=== PATIENT | female | born 1925 | race Caucasian/White ===

== ENCOUNTER 2016-06-22 15:41 | Inpatient (IN) | payer MEDICARE, BC ==
--- NOTE | ~2016-06-22 | HP ---
Unit #: [id number] #: [id number] Patient: LEILA CROWE [id number] [address] [place], [place] [address] [id number] MR#: [id number] NAME: LEILA CROWE ROOM: 18443 Age: 89 Sex: F Admission Date: 06/22/2016 : 1925 Attending Physician: Maria Luisa Duncan M.D. Primary Care Physician: Deepak Nuñez M.D. HISTORY AND PHYSICAL CHIEF COMPLAINT Anemia, weakness, nausea and vomiting, melena. HISTORY OF PRESENT ILLNESS This very pleasant 89-year-old female with small lymphocytic lymphoma, pancytopenia, valvular heart disease, is admitted for melena. The patient's last bowel movement was four days ago. She has been feeling weaker and nauseous. She was seen by Dr. Gilman today who gave her a liter of saline bolus, and recommended she come to the ER due to her worsening constipation and possible need for disimpaction. While in the ER, she received an enema and was noted to have black stools. Her blood pressure is 97/44 and she was bolused with another liter of saline. Her hematocrit is 22.2 down from 24 two days ago. She is also noted to be pancytopenic which is chronic. PAST MEDICAL HISTORY 1. 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 2. Mild aortic stenosis, severe mitral regurgitation, moderate pulmonary hypertension. History of chronic diastolic congestive heart failure with ejection fraction of 55%. 3. History of community-acquired pneumonia. 4. Hypothyroidism. 5. Hypertension. 6. Left neck surgery. 7. Cholecystectomy. 8. D and C. 9. Port placement. ALLERGIES No known drug allergies. HOME MEDICATIONS 1. Aspirin 81 mg daily. 2. Lasix 40 mg daily. 3. Metoprolol 12.5 mg b.i.d. 4. Synthroid 0.15 mg daily. 5. Imbruvica two tablets daily. SOCIAL HISTORY The patient lives alone. Stopped smoking 35 years ago. Does not drink alcohol. FAMILY HISTORY Unit #: [id number] #: [id number] Patient: LEILA CROWE CAD. REVIEW OF SYSTEMS Notable for weakness, nausea, vomiting, constipation, lymphoma, pancytopenia, valvular heart disease, congestive heart failure, hypothyroidism, hypertension, above-mentioned surgeries. All other systems were reviewed and are negative. PHYSICAL EXAMINATION VITAL SIGNS: Temperature 97.5, pulse 67, respirations 16, blood pressure 97/44 which has improved to 125/42, O2 saturation 97% on room air. GENERAL: Pleasant, 89-year-old pale female currently in no acute distress. HEENT: Eyes PERRLA. Extraocular muscles are intact. Pharynx benign. NECK: Supple without adenopathy or thyromegaly. CHEST: Clear. There is a port in the right upper chest. HEART: Normal S1, S2 with a 3/6 systolic murmur heard throughout the precordium. ABDOMEN: Bowel sounds are present. No hepatosplenomegaly, tenderness or masses. EXTREMITIES: Without edema. Pedal pulses are diminished. NEUROLOGIC: Awake, alert, oriented. Cranial nerves are intact. Equal strength throughout. SKIN: Reveals some bruising and some petechiae. DIAGNOSTIC STUDIES LABORATORY: Hematocrit 22.2 down from a hematocrit of 24 two days ago, white blood cell count 3.7, platelet count 84 which is chronic. MCV is normal. SMA-7 BUN 33, potassium 3, calcium 8.3. Liver function tests recently performed two days ago are normal although her protein was 5.7. IMAGING: CT scan of abdomen and pelvis done two days ago no acute disease. Extensive diverticular disease. Large volume of stool in the colon. Marked stable splenomegaly. CARDIOVASCULAR: EKG sinus bradycardia, rate 58, intraventricular conduction delay. Q noted in V2, I and aVL. ASSESSMENT 1. Melena, rule out upper gastrointestinal bleed. 2. Small lymphocytic lymphoma with pancytopenia maintained on Imbruvica. 3. Essential hypertension. 4. Hypothyroidism. 5. Valvular heart disease. 6. Hypokalemia. PLAN 1. Proton pump inhibitor. 2. Transfuse. 3. Obtain serial hemoglobin and hematocrit after transfusion. 4. Gastroenterology to see in consultation. 5. SCDs for DVT prophylaxis. 6. Hold aspirin. 7. Will notify Hematology of patient's admission. 8. Decrease Lasix for now. Unit #: [id number] #: [id number] Patient: LEILA CROWE Dictated by Maria Luisa Duncan M.D. AML/cs TD: 06/22/2016 22:01 JOB #: [id number] HISTORY AND PHYSICAL Page 1 of 1 X Maria Luisa Duncan MD HISTORY AND PHYSICAL
--- NOTE | ~2016-06-22 | CO ---
Unit #: [id number] #: [id number] Patient: LEILA ANDRE [id number] [address] [address] [id number] I MR#: [id number] NAME: LEILA ANDRE ROOM: 319 Age: 89 Sex: F Admission Date: 06/22/2016 : 1925 Attending Physician: Rose Mary Payan M.D. Primary Care Physician: Deepak Nuñez M.D. Requesting Physician: Maria Luisa Duncan M.D. CONSULTATION REPORT REASON FOR CONSULTATION GI bleeding. HISTORY OF PRESENT ILLNESS Ms. Andre is an 89-year-old pleasant lady. She was admitted with anemia, weakness, nausea, vomiting and black stools. She has had two episodes of black stools within the last 24 to 48 hours. She has not had any previous history of GI bleeding. She has no nausea, vomiting or hematemesis. She does have some abdominal pain which seems to be better now. PAST MEDICAL HISTORY 1. Chronic lymphocytic leukemia. 2. Chronic thrombocytopenia. Dr. Gilman things that this is related to leukemia as well as possibly cirrhosis. 3. History of hypothyroidism. 4. History of hypertension. 5. Previous cholecystectomy. SOCIAL HISTORY Ex-smoker. No alcohol or drug abuse. FAMILY HISTORY Brother with colon cancer. ALLERGIES No known drug allergies. HOME MEDICATIONS 1. Imbruvica for her leukemia. 2. Synthroid. 3. Metoprolol. 4. Lasix. 5. Aspirin. REVIEW OF SYSTEMS Complete 10-point review of systems was done, which was unremarkable other than as mentioned above. PHYSICAL EXAMINATION VITALS: Stable. Afebrile. Temperature 97.5, pulse 67, respiratory rate 16, blood pressure 97/44. HEENT: Pupils equal and reactive. Sclerae anicteric. Oral mucosa moist. NECK: No jugular venous distension. No lymphadenopathy. Unit #: [id number] #: [id number] Patient: LEILA ANDRE CHEST: Clear to auscultation bilaterally. HEART: Regular rate and rhythm. No murmurs. ABDOMEN: Soft and nontender. No distension. No organomegaly, ascites. EXTREMITIES: Without clubbing, cyanosis or edema. NEUROLOGIC: Intact. SKIN: Warm and dry. DIAGNOSTIC STUDIES IMAGING: CT abdomen was unremarkable for any acute disease. It did show some increased stool burden. LABORATORY: White blood cell count 2.7, hemoglobin 7.5, (1) 10, platelet count 66, albumin 3.8, LFTs normal. ASSESSMENT 1. Patient with melanotic stools, possibly upper GI bleed given the thrombocytopenia and possible history of cirrhosis, variceal cannot be ruled out. Ulcers and others are in the differential. Will keep her on PPI for now and plan on doing an upper endoscopy for evaluation. 2. Chronic anemia. 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 3. Hypertension. 4. Hypothyroidism. 5. Valvular heart disease. Thank you, Dr. Duncan, for this interesting consult. We will follow along. Dictated by... Jordyn Lim/justyna TD: 06/23/2016 09:05 JOB #: [id number] CONSULTATION REPORT Page 1 of 1 X Liang Alanis MD X CONSULTATION REPORT
--- NOTE | ~2016-06-22 | EKG ---
PATIENT: LEILA CROWE UNIT #: [id number] Ventricular Rate: 58 BPM Atrial Rate: 58 BPM P-R Interval: 156 ms QRS Duration: 136 ms Q-T Interval: 520 ms QTC Calculation(Bezet): 510 ms P [place]: 9 degrees Calculated R [place]: -24 degrees Calculated T [place]: 67 degrees Diagnosis Line: Sinus bradycardia Diagnosis Line: Left ventricular hypertrophy with QRS widening and Diagnosis Line: repolarization abnormality Diagnosis Line: Abnormal ECG Diagnosis Line: When compared with ECG of 01-JUN-2015 19:29, Diagnosis Line: Premature atrial complexes are no longer Present Diagnosis Line: Diagnosis Line: Confirmed by LAKESHIA SRINIVASAN MD ([id number]) on Diagnosis Line: 06/22/2016 10:30:38 PM INTERPRETING : FLORES
--- NOTE | ~2016-06-22 | DS ---
Unit #: [id number] #: [id number] Patient: LEILA ANDRE [id number] [address] [place], [place] [address] [id number] I MR#: [id number] NAME: LEILA ANDRE ROOM: 319 Age: 89 Sex: F Admission Date: 06/22/2016 : 1925 Discharge Date: 06/24/2016 Attending Physician: Rose Mary Payan M.D. Primary Care Physician: Deepak Nuñez M.D. DISCHARGE SUMMARY PRINCIPAL DIAGNOSES 1. Acute upper gastrointestinal bleed secondary to gastritis and questionable healing gastric ulcer. 2. Acute blood loss anemia status post transfusion of two units of packed red blood cells. Discharge hemoglobin 7.8. 3. Chemotherapy-induced pancytopenia. 4. Hypernatremia, resolved. 5. Hypothyroidism with decreased thyroid-stimulating hormone of 0.22. Free T3 and free T4 are currently pending. 6. Hypokalemia. 7. Hypothyroidism. 8. Aortic stenosis. 9. Severe mitral regurgitation. 10. Moderate pulmonary hypertension. 11. Hypertension. 12. Moderate protein malnutrition. CONSULTANTS Dr. Alanis, gastroenterology. PROCEDURES EGD on June 24, 2015 with findings of small hiatal hernia, tovq-gh-ocymdgsd gastritis with scarring suggestive of healing ulcer in the antral region. No active bleeding. Normal duodenum. Biopsies are currently pending. DIAGNOSTIC STUDIES IMAGING: CT scan of the abdomen and pelvis without contrast on June 21, 2016 with no acute abnormality. Marked splenomegaly that is stable. Extensive diverticulosis noted. Large amount of stool within the colon. CLINICAL HISTORY AND HOSPITAL COURSE Ms. Andre is a very nice 89-year-old female with a history of small lymphocytic leukemia with associated pancytopenia who was sent by Dr. Gilman due to complaints of significant constipation. In the emergency department the patient's hemoglobin was found to be low at 7.5, down from a baseline of 8.2. Patient was also having complaints of melanotic stool. Patient was subsequently admitted. Patient was placed on PPI therapy, and Dr. Alanis was consulted. She was initially transfused 1 unit of packed red blood cells, and hemoglobin remained stable at 7.5. I will note, however, she was getting IV hydration. Patient underwent EGD with findings as noted, and she will be transitioned to oral PPI therapy. Hemoglobin remained stable, although I Unit #: [id number] #: [id number] Patient: LEILA ANDRE did transfuse her an additional unit of packed red blood cells just to ensure a hemoglobin of close to 8 upon discharge. Patient had a single melanotic stool this morning but is eating and not having any other complaints. Will discharge her home on and follow up hemoglobin. I will note patient was mildly hypokalemic, and this will be replaced prior to discharge. Her TSH was also found to be mildly low, and I am awaiting a free T3 and free T4. She may require dose adjustments in her levothyroxine medication. DISCHARGE CONDITION Stable. DISCHARGE STATUS Discharge to home. DISCHARGE MEDICATIONS 1. Protonix 40 mg b.i.d. 2. Imbruvica 2 tablets daily. 3. Lasix 40 mg p.o. daily. 4. Aspirin 81 mg daily to be reinitiated in 7 days. 5. Levothyroxine 150 mcg p.o. daily. 6. Metoprolol tartrate 12.5 mg b.i.d. DISCHARGE INSTRUCTIONS Patient instructed to follow a regular diet. She can increase her activity as tolerated. FOLLOWUP 1. Patient needs followup CBC done on June 28 or with results faxed to Dr. Gilman. 2. Patient will follow up with Dr. Gilman otherwise as scheduled. 3. Follow up with her primary care provider, Dr. Nuñez, in 2 weeks. Dictated by... Rose Mary Payan M.D. DOM/sofi TD: 06/25/2016 08:39 JOB #: [id number] DISCHARGE SUMMARY Page 1 of 1 X Rose Mary Payan MD DISCHARGE SUMMARY
--- NOTE | ~2016-06-22 | OR ---
Unit #: [id number] #: [id number] Patient: LEILA CROWE [id number] [address] [address] [id number] I MR#: [id number] NAME: LEILA CROWE ROOM: [facility] Date of Procedure: 06/23/2016 Admission Date: 06/22/2016 Surgeon: Liang Alanis M.D. : 1925 Attending Physician: Rose Mary Payan M.D. Primary Care Physician: Deepak Nñuez M.D. OPERATIVE REPORT PROCEDURE PERFORMED Esophagogastroduodenoscopy with biopsy. INDICATIONS FOR PROCEDURE The patient with melenic stools, possible GI bleeding for upper GI and anemia undergoing evaluation of upper endoscopy. MEDICATIONS Monitored anesthesia. POSTOPERATIVE FINDINGS 1. Small hiatal hernia. 2. No varices. 3. Dfmy-pb-uetlgcpx gastritis with scarring suggesting of healing ulcer in the antral. No active bleeding was seen. 4. Normal duodenum and distal duodenum. 5. Biopsies taken in the antrum and body. PLAN Continue PPI therapy and watch H and H. DESCRIPTION OF PROCEDURE The patient was explained of the procedure, risks, and benefits along with risks and benefits of anesthesia. She was brought to the endoscopy room. Propofol anesthesia was given. Bite block was placed. The scope was passed down the mouth and esophagus, stomach, duodenum, and distal duodenum. Findings as described. Biopsies were taken. Gently, I pulled the scope out of the patient's mouth. She tolerated it well. Dictated by... Jordyn Lim/hugo TD: 06/24/2016 00:24 JOB #: [id number] CC: Otis Gilman M.D. Unit #: [id number] #: [id number] Patient: LEILA CROWE OPERATIVE REPORT Page 1 of 1 X Liang Alanis MD X PROCEDURE OPERATIVE NOTE
[~2016-06-22 15:41] MED LIST: ACETAMINOPHEN PO; ALLOPURINOL300 MG PO; AMLODIPINE BESYL5 MG PO; ARTHITIS MED PO; ASPIRIN EC81 M1 PO; ASPIRIN PO; ASPIRIN81 M2 PO; ASPIRIN81 MG PO; BENAZEPRIL HCL10 M1 PO; BENAZEPRIL HCL10 MG PO; CEFTIN500 MG PO; COLACE PO; FERROUS SULFATE1 TAB PO; IMBRUVICA140 MG PO; IRON325 ( 65 ) PO; KCL PO; KEFLEX500 MG PO; KLOR-CON PO; LASIX20 MG PO; LEUKERAN2 MG PO; LEVAQUIN PO; LEVAQUIN750 M1 PO; LEVO-T125 MCG PO; LEVOXYL100 MCG PO; LOPRESSOR PO; LORTAB 7.5-5001 TAB PO; LOTREL 5/10 MG1 CAP PO; LOTREL PO; METOPROLOL SUCC25 MG PO; METOPROLOL SUCC50 MG PO; METOPROLOL TAR25 MG PO; NAPROSYN-EC500 M1 PO; NAPROSYN500 MG; NAPROSYN500 MG PO; NORVASC PO; PHENERGAN PO; SYNTHROID PO; SYNTHROID125 PO; TOPROL XL 50 MG50 MG PO; TOPROL XL50 MG PO; VICODIN 5/500 T1 TAB PO
[2016-06-22 16:37] LABS: BASOPHIL# 0.1 X10e3 (0-0.3); BASOPHIL% 1.7 % (0-2.5); EOSINOPHIL# 0.1 X10e3 (0-0.7); EOSINOPHIL% 2.4 % (0.0-7.0); HEMATOCRIT 22.2 % (35.0-45.0); HEMOGLOBIN 7.5 gm/dL (12.0-16.0); LYMPHOCYTE# 0.5 X10e3 (1.0-3.5); LYMPHOCYTE% 14.6 % (17.0-45.0); MEAN CELL VOLUME 91.5 FL (83-96); MEAN CORPUSCULAR HGB CONC 33.9 g/dL (30-36); MEAN PLATELET VOLUME 8.8 FL (6.5-11.5); MONOCYTE# 0.4 X10e3 (0-1.0); MONOCYTE% 9.9 % (3.0-12.0); NEUTROPHIL# 2.7 X10e3 (1.5-7.1); NEUTROPHIL% 71.4 % (40-75); PLATELET COUNT 84 X10e3 (140-420); RED BLOOD COUNT 2.42 X10e (3.90-5.30); RED CELL DISTRIBUTION WIDTH 15.1 % (11.0-15.5); WHITE BLOOD COUNT 3.7 X10e3 (4.0-10.5)
[2016-06-22 16:44] LABS: DIFF IND YES
[2016-06-22 17:11] LABS: BUN/CREATININE RATIO 27.5; CALCIUM SERUM 8.3 mg/dL (8.4-10.2); CREATININE SERUM 1.2 mg/dL (0.6-1.4)
[2016-06-22 17:39] LABS: ANISOCYTOSIS MOD; PLATELET ESTIMATE DECREASED (NORMAL); POIKILOCYTOSIS SL
[2016-06-23 08:35] LABS: BASOPHIL% 1.7 % (0-2.5); EOSINOPHIL# 0.1 X10e3 (0-0.7); EOSINOPHIL% 2.7 % (0.0-7.0); HEMATOCRIT 22.3 % (35.0-45.0); HEMOGLOBIN 7.5 gm/dL (12.0-16.0); LYMPHOCYTE# 0.3 X10e3 (1.0-3.5); LYMPHOCYTE% 12.5 % (17.0-45.0); MEAN CELL VOLUME 91.2 FL (83-96); MEAN CORPUSCULAR HEMOGLOBIN 30.7 PG (28-34); MEAN CORPUSCULAR HGB CONC 33.7 g/dL (30-36); MEAN PLATELET VOLUME 8.7 FL (6.5-11.5); MONOCYTE# 0.3 X10e3 (0-1.0); MONOCYTE% 10.8 % (3.0-12.0); NEUTROPHIL% 72.3 % (40-75); PLATELET COUNT 66 X10e3 (140-420); RED BLOOD COUNT 2.44 X10e (3.90-5.30); RED CELL DISTRIBUTION WIDTH 15.6 % (11.0-15.5); WHITE BLOOD COUNT 2.7 X10e3 (4.0-10.5)
[2016-06-23 08:40] LABS: DIFF IND YES
[2016-06-23 09:05] LABS: GLOM FILT RATE Estimated 49.9 mL/min (>60); MAGNESIUM 1.9 mg/dL (1.6-3.0); POTASSIUM 3.6 mmol/L (3.5-5.1)
[2016-06-23 09:57] LABS: PLATELET ESTIMATE DECREASED (NORMAL)
[2016-06-23 09:58] LABS: ANISOCYTOSIS MOD; POIKILOCYTOSIS SL
[2016-06-23 16:06] LABS: HEMATOCRIT 21.4 % (35.0-45.0); HEMOGLOBIN 7.3 gm/dL (12.0-16.0)
[2016-06-23 16:25] LABS: BUN/CREATININE RATIO 25.55; CALCIUM SERUM 7.9 mg/dL (8.4-10.2); CREATININE SERUM 0.9 mg/dL (0.6-1.4); GLOM FILT RATE Estimated 56.7 mL/min (>60); POTASSIUM 3.3 mmol/L (3.5-5.1)
[2016-06-24 01:02] LABS: HEMOGLOBIN 7.8 gm/dL (12.0-16.0)
[2016-06-24 06:28] LABS: HEMATOCRIT 22.9 % (35.0-45.0); HEMOGLOBIN 7.8 gm/dL (12.0-16.0); MEAN CELL VOLUME 91.6 FL (83-96); MEAN CORPUSCULAR HEMOGLOBIN 31.1 PG (28-34); MEAN CORPUSCULAR HGB CONC 33.9 g/dL (30-36); MEAN PLATELET VOLUME 9.3 FL (6.5-11.5); RED BLOOD COUNT 2.5 X10e (3.90-5.30); RED CELL DISTRIBUTION WIDTH 15.9 % (11.0-15.5); WHITE BLOOD COUNT 2.9 X10e3 (4.0-10.5)
[2016-06-24 07:28] LABS: ALBUMIN SERUM 2.8 g/dL (3.5-5.0); BILIRUBIN,TOTAL 1.6 mg/dL (0.2-2.0); BUN/CREATININE RATIO 22.22; CALCIUM SERUM 7.9 mg/dL (8.4-10.2); CREATININE SERUM 0.9 mg/dL (0.6-1.4); GLOM FILT RATE Estimated 56.7 mL/min (>60); POTASSIUM 3.4 mmol/L (3.5-5.1); PROTEIN TOTAL SERUM 4.1 g/dL (6.0-8.3)
[2016-06-24 08:35] LABS: HEMATOCRIT 23.5 % (35.0-45.0); HEMOGLOBIN 7.9 gm/dL (12.0-16.0)
[2016-06-24 11:55] LABS: FREE T3 2.7 pg/mL (2.5-3.9)
[2016-06-24 11:56] LABS: FREE THYROXIN (T4) 1.78 ng/dL (0.58-1.64)
[2016-08-26] MEDS ORDERED: FUROSEMIDE40 MG PO (01:19)
[2016-08-26] MEDS ORDERED: PROTONIX PO (12:42)
[2016-08-26] MEDS ORDERED: SYNTHROID PO (18:02)
[2016-08-26] MEDS ORDERED: METOPROLOL TAR25 MG PO (18:02)
[2016-08-26] MEDS ORDERED: IMBRUVICA140 MG PO (18:03)
[2016-08-26] MEDS ORDERED: DOK100 MG PO (20:45)
== END 2016-06-24 13:10 | disposition home health service (06) | DRG 377 ==
LOC: CED 15:41 → CEDOF 21:30 → C3A PCU 23:00
PROVIDERS: Emergency Medicine; Internal Medicine
PROC: 30233N1 Transfusion of Nonautologous Red Blood Cells into Peripheral Vein, Percutaneous Approach (ICD-10-PCS; principal; 2016-06-23 12:31)
PROC: 0DB78ZX Excision of Stomach, Pylorus, Via Natural or Artificial Opening Endoscopic, Diagnostic (ICD-10-PCS; 2016-06-23 12:31)
DX: K29.51 Unspecified chronic gastritis with bleeding (principal); D61.810 Antineoplastic chemotherapy induced pancytopenia; E87.0 Hyperosmolality and hypernatremia; E44.0 Moderate protein-calorie malnutrition; D62 Acute posthemorrhagic anemia; I11.0 Hypertensive heart disease with heart failure; I50.32 Chronic diastolic (congestive) heart failure; I27.2 Other secondary pulmonary hypertension; C91.10 Chronic lymphocytic leukemia of B-cell type not having achieved remission; K44.9 Diaphragmatic hernia without obstruction or gangrene; E03.9 Hypothyroidism, unspecified; Z87.891 Personal history of nicotine dependence; E87.6 Hypokalemia; K59.00 Constipation, unspecified; Z90.49 Acquired absence of other specified parts of digestive tract; Z79.82 Long term (current) use of aspirin; Z82.49 Family history of ischemic heart disease and other diseases of the circulatory system; I08.0 Rheumatic disorders of both mitral and aortic valves
CPT/HCPCS: 36415; 74176; 80048; 80053; 80076; 81003; 83690; 83735; 84439; 84443; 84481; 85014; 85018; 85025; 85027; 86850; 86900; 86901; 86922; 88305; 88312; 93005; 96360; 96361; 96374; 99284; 99285; C9113; J1642; J2405; P9016

== ENCOUNTER 2016-07-20 17:41 | Emergency (ER) | payer MEDICARE, BC ==
--- NOTE | ~2016-07-20 | CR2 ---
[facility] A Service of [facility] RADIOLOGY TEXT RESULTS PATIENT: LEILA CROWE LOCATION: [facility] : [birth year] UNIT #: [id number] AGE: [address]: Alfredo Shin MD SEX: F ORDER DR: [id number] [facility] [address] [facility]. [place], [place] [address] [id number] MR#: [id number] Acc #: [id number] NAME: LEILA CROWE : 1925 SEX: F STUDY DATE/TIME: 07/20/2016 20:49 UNIT: [facility] ROOM: STUDY DESCRIPTION: CR Abdomen Acute Series Attending Physician: Alfredo Shin M.D. Ordering Physician: Alfredo Shin M.D. Primary Care Physician: Deepak Nuñez M.D. MEDICAL IMAGING REPORT This report is preliminary unless electronic signature is present EXAM Acute abdomen series. HISTORY Nausea, vomiting and diarrhea for 3 days. FINDINGS Flat and upright views of the abdomen and upright view of the chest demonstrate the bowel gas pattern is normal. No bowel dilatation or displacement. Moderate amount of stool in the sigmoid colon and rectum. No free air. Surgical clips in the right upper quadrant and 8 mm calcification in the medial right upper quadrant corresponding to a probable calcified lymph node on recent CT. Multilevel degenerative changes in the lumbar spine. Upright view of the chest demonstrate moderate cardiomegaly. Pulmonary vascularity is normal. Right IJ port catheter tip is at the junction of the SVC and right atrium. Lungs are clear. IMPRESSION No acute findings. Bowel gas pattern is normal. No active disease in the lungs. Dictated by... Mando Pat M.D. THIS IS AN ELECTRONICALLY VERIFIED REPORT Mando Pat M.D. at 07/21/2016 4:08 PM HIRA/khushboo TD: 07/21/2016 01:35 JOB #: [id number] [facility] A Service of [facility] RADIOLOGY TEXT RESULTS PATIENT: LEILA CORWE LOCATION: [facility] #: [id number] : [birth year] UNIT #: [id number] AGE: [address]: Alfredo Shin MD SEX: F ORDER DR: MEDICAL IMAGING REPORT Page 1 of 1 COPY
--- NOTE | ~2016-07-20 | EKG ---
PATIENT: LEILA CROWE UNIT #: [id number] Ventricular Rate: 63 BPM Atrial Rate: 63 BPM P-R Interval: 188 ms QRS Duration: 134 ms Q-T Interval: 484 ms QTC Calculation(Bezet): 495 ms P [place]: 54 degrees Calculated R [place]: -20 degrees Calculated T [place]: 58 degrees Diagnosis Line: Normal sinus rhythm Diagnosis Line: Left ventricular hypertrophy with QRS widening and Diagnosis Line: repolarization abnormality Diagnosis Line: Poor R wave progression questionable lead position Diagnosis Line: or body habitus Diagnosis Line: Abnormal ECG Diagnosis Line: When compared with ECG of 22-JUN-2016 15:26, Diagnosis Line: Questionable change in initial forces of Septal Diagnosis Line: leads Diagnosis Line: Confirmed by BRYAN EUCEDA MD ([id number]) on 07/22/2016 Diagnosis Line: 5:52:57 PM INTERPRETING MD: OK KUO
[2016-07-20 19:56] LABS: URINE SOURCE CLEAN CATCH
[2016-07-20 20:04] LABS: URINE APPEARANCE CLEAR; URINE BILIRUBIN NEG (NEG); URINE BLOOD NEG (NEG); URINE COLOR YELLOW; URINE GLUCOSE NEG (NEG); URINE KETONE NEG (NEG); URINE LEUKOCYTE ESTERASE NEG (NEG); URINE NITRATE NEG (NEG); URINE PH 6.5 (5-8); URINE PROTEIN NEG (NEG); URINE SPECIFIC GRAVITY 1.013 (1.003-1.035)
[2016-07-20 20:16] LABS: CULTURE INDICATED? NO
[2016-07-20 20:32] LABS: BASOPHIL% 0.8 % (0-2.5); EOSINOPHIL% 0.8 % (0.0-7.0); HEMATOCRIT 24.6 % (35.0-45.0); HEMOGLOBIN 8.4 gm/dL (12.0-16.0); LYMPHOCYTE# 0.3 X10e3 (1.0-3.5); LYMPHOCYTE% 10.5 % (17.0-45.0); MEAN CELL VOLUME 93.4 FL (83-96); MEAN CORPUSCULAR HEMOGLOBIN 31.7 PG (28-34); MEAN PLATELET VOLUME 9.5 FL (6.5-11.5); MONOCYTE# 0.2 X10e3 (0-1.0); MONOCYTE% 8.3 % (3.0-12.0); NEUTROPHIL# 2.3 X10e3 (1.5-7.1); NEUTROPHIL% 79.6 % (40-75); PLATELET COUNT 83 X10e3 (140-420); RED BLOOD COUNT 2.64 X10e (3.90-5.30); RED CELL DISTRIBUTION WIDTH 17.1 % (11.0-15.5); WHITE BLOOD COUNT 2.8 X10e3 (4.0-10.5)
[2016-07-20 20:33] LABS: DIFF IND YES
[2016-07-20 20:46] LABS: PLATELET ESTIMATE DECREASED (NORMAL)
[2016-07-20 20:47] LABS: ANISOCYTOSIS MOD; POIKILOCYTOSIS SL
[2016-07-20 21:02] LABS: ALBUMIN SERUM 3.5 g/dL (3.5-5.0); BILIRUBIN, DIRECT 0.4 mg/dL (0.0-0.2); BILIRUBIN,INDIRECT 1.2 mg/dL (0.0-0.9); BILIRUBIN,TOTAL 1.6 mg/dL (0.2-2.0); BUN/CREATININE RATIO 23.57; CALCIUM SERUM 8.6 mg/dL (8.4-10.2); CREATININE SERUM 1.4 mg/dL (0.6-1.4); GLOM FILT RATE Estimated 33.2 mL/min (>60); POTASSIUM 3.6 mmol/L (3.5-5.1); PROTEIN TOTAL SERUM 5.5 g/dL (6.0-8.3)
[2016-08-26] MEDS ORDERED: FUROSEMIDE40 MG PO (01:19)
[2016-08-26] MEDS ORDERED: PROTONIX PO (12:42)
[2016-08-26] MEDS ORDERED: METOPROLOL TAR25 MG PO (18:02)
[2016-08-26] MEDS ORDERED: SYNTHROID PO (18:02)
[2016-08-26] MEDS ORDERED: IMBRUVICA140 MG PO (18:03)
[2016-08-26] MEDS ORDERED: DOK100 MG PO (20:45)
== END 2016-07-20 22:34 | disposition home or self-care (01) ==
LOC: CED 17:41
PROVIDERS: Emergency Medicine
DX: I13.0 Hypertensive heart and chronic kidney disease with heart failure and stage 1 through stage 4 chronic kidney disease, or unspecified chronic kidney disease (principal); N18.9 Chronic kidney disease, unspecified; I50.9 Heart failure, unspecified; D64.9 Anemia, unspecified; K21.9 Gastro-esophageal reflux disease without esophagitis; Z90.49 Acquired absence of other specified parts of digestive tract
CPT/HCPCS: 36415; 74022; 80048; 80076; 81003; 83690; 85025; 93005; 96361; 96374; 96375; 99284; C9113; J1642; J2405

== ENCOUNTER 2016-08-08 14:36 | Inpatient (IN) | payer MEDICARE, BC ==
--- NOTE | ~2016-08-08 | HP ---
Unit #: [id number] #: [id number] Patient: LEILA CROWE [id number] [address] [place], [place] [address] [id number] I MR#: [id number] NAME: LEILA CROWE ROOM: 82995 Age: 89 Sex: F Admission Date: 08/08/2016 : 1925 Attending Physician: Slava Jose M.D. Primary Care Physician: Deepak Nuñez M.D. HISTORY AND PHYSICAL CHIEF COMPLAINT Generalized weakness, dizziness, confusion, fatigue. 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 Gilman, history of hypothyroid, hypertension, aortic stenosis, severe mitral regurgitation, chronic diastolic CHF, moderate protein malnutrition, splenomegaly, diverticulosis. She was brought to the emergency room today for the evaluation of weakness and dizziness for one week which got progressively worse today. Usually she lives alone. She takes care of herself. She cooks herself. Her daughter called her today at home. She was not able to reach. Then eventually she came to her home. She found her at home confused and weak and she was brought to the emergency room. On workup in the emergency room, she was found to have white count 2, hemoglobin 5.4, hematocrit 16, platelets 16; BNP 143; potassium 3.4. CT is done but is pending at the time of dictation. Otherwise at this time, she is alert, awake, oriented x3. She denies any complaint. She says she feels weak and fatigued. She denies chest pain. No nausea or vomiting. No diarrhea, no blood in the stool, no constipation. No other complaints. PAST MEDICAL HISTORY 1. 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 2. History of pancytopenia secondary to chemo in the past. 3. History of GI bleeds. 4. History of EGD in April 2015 showed small hiatal hernia. Mild to moderate gastritis. Healing gastric ulcer. 5. History of hypothyroid. 6. History of mild aortic stenosis, severe mitral regurgitation, moderate pulmonary hypertension/chronic diastolic CHF with ejection fraction 55%. 7. Hypertension. 8. History of moderate protein malnutrition. 9. Splenomegaly. 10. Diverticulosis. PAST SURGICAL HISTORY 1. History of left neck surgery. 2. Cholecystectomy. 3. D and C. 4. Port placement. HOME MEDICATIONS 1. Protonix 40 mg b.i.d. Unit #: [id number] #: [id number] Patient: LEILA CROWE 2. Colace 100 mg b.i.d. p.r.n. 3. Aspirin 81 mg daily. 4. Lasix 40 mg daily. 5. Metoprolol 12.5 b.i.d. 6. Synthroid 150 mcg daily. 7. Imbruvica one tablet t.i.d. ALLERGIES No known drug allergies. SOCIAL HISTORY She lives alone. She stopped smoking 35 years ago. Does not drink alcohol. No illicit drug use. FAMILY HISTORY Positive for coronary artery disease in the family. REVIEW OF SYSTEMS All review of systems is negative except what mentioned in history of present illness. PHYSICAL EXAMINATION VITAL SIGNS: Temperature 98.3, heart rate 88, respiratory rate 16, blood pressure 128/47, oxygen 100% on room air. GENERAL: Elderly female lying in the bed, comfortably, currently not in any distress. She is alert, awake, oriented x3. HEENT: Pupils are equal and reactive to light and accommodation. Extraocular muscles are intact. Conjunctivae pale. NECK: Supple. No JVD. No thyromegaly. LUNGS: Clear to auscultation. No rhonchi, no wheezing. HEART: S1, S2. 3/6 systolic murmur throughout pericardium. ABDOMEN: Soft, nontender, nondistended. Bowel sounds positive. EXTREMITIES: Inspection normal. No cyanosis, clubbing, or edema. NEUROLOGIC: No focal neurologic deficits. SKIN: No rash. PSYCHIATRIC: Normal mood and affect. DIAGNOSTIC STUDIES LABORATORY: TSH 1.21. White count 2.2, hemoglobin 5.4, hematocrit 16.8, platelets 66. Lactic acid level 1.1. BNP 142. Sodium 140, potassium 3.4, chloride 111, CO2 is 23, glucose 132, BUN 30, creatinine 1.2, albumin 3.1, indirect bilirubin 1.4, direct bilirubin 0.3. INR 1.1. UA is negative. IMAGING: Chest x-ray no acute finding. Stable cardiomegaly. Chronic changes. CT head is pending at time of dictation. ASSESSMENT AND PLAN 1. Symptomatic anemia/pancytopenia most likely secondary to chemo. Will admit the patient. No active bleed at this time. Will transfuse 2 units of packed red blood cells. Repeat CBC in the morning. 2. B-cell lymphocytic lymphoma. She follows with Dr. Gilman. Will ask Dr. Gilman to see her while in the hospital. 3. History of pancytopenia in the past secondary to chemo. 4. History of gastrointestinal bleed in the past with gastritis and healing gastric ulcer/gastroesophageal reflux disease. She is on Unit #: [id number] #: [id number] Patient: LEILA CROWE Protondanii. 5. Hypothyroid. She is on Synthroid. Normal TSH. 6. History of mild aortic stenosis/severe mitral regurgitation/chronic diastolic congestive heart failure with ejection fraction 55%/moderate pulmonary hypertension. She is currently on Lasix. Currently not in volume overload. Will give extra dose of Lasix 40 IV after one unit of transfusion. 7. Mild hypokalemia. Replace. 8. Hypertension. 9. History of splenomegaly. 10. Diverticulosis. 11. Moderate protein malnutrition. 12. DVT prophylaxis. Will place the patient on SCDs. Dictated by Jordyn Wilson/karlo TD: 08/08/2016 21:10 JOB #: [id number] HISTORY AND PHYSICAL Page 1 of 1 X X HISTORY AND PHYSICAL
--- NOTE | ~2016-08-08 | CT71 ---
[facility] A Service of [facility] RADIOLOGY TEXT RESULTS PATIENT: LEILA CROWE LOCATION: [facility] [id number] : [birth year] UNIT #: [id number] AGE: [address]: Rose Mary Payan MD SEX: F ORDER DR: [id number] [facility] [address] [place], [place] [address] [id number] I MR#: [id number] Acc #: [id number] NAME: LEILA CROWE : 1925 SEX: F STUDY DATE/TIME: 08/08/2016 20:09 UNIT: [facility] ROOM: [facility] STUDY DESCRIPTION: CT Head Wo Contrast Attending Physician: Slava Jose M.D. Ordering Physician: Adrianna Kerns M.D. Primary Care Physician: Deepak Nuñez M.D. MEDICAL IMAGING REPORT This report is preliminary unless electronic signature is present EXAM CT head without contrast, 08/08/[address] head without contrast dated 09/30/2008. HISTORY Patient is fatigued over the last couple of days. Nausea for last jkk-rm-upnlu days. Dizziness. This CT exam was performed with one or more of the following radiation dose reduction techniques: automatic exposure control, adjustment of mA and/or kV according to patient size, and iterative reconstruction. FINDINGS CT of the head was obtained without contrast in the axial plane as per the protocol. No acute intracranial hemorrhage, space-occupying mass, mass effect, midline shift or hydrocephalus. Less than 1 cm small hypodensity is noted adjacent to the anterior horn of the left lateral ventricle, in the region of the left caudate head. It could be volume averaging with the ventricle or a small insult in this region. It is slightly better seen when compared to the prior study from 2008. Nonspecific. Atherosclerotic aortic vascular calcifications are noted in bilateral intracranial internal carotid arteries. Nasal septum is deviated to the right with an apical spur. Paranasal sinuses and mastoid air cells are well-aerated. Orbits with the ocular structures do not demonstrate any significant abnormality. IMPRESSION 1. No significant acute intracranial abnormality. 2. There is a new less than 1 cm hypodensity abutting the anterior horn of the left lateral ventricle in the region of the left caudate head. [facility] Service of [facility] RADIOLOGY TEXT RESULTS PATIENT: LEILA CROWE LOCATION: [facility] [phone] : [birth year] UNIT #: [id number] AGE: [address]: Rose Mary Payan MD SEX: F ORDER DR: It could be related to part of the ventricle, or less likely, an old insult. Dictated by... Amanda Herrera M.D. THIS IS AN ELECTRONICALLY VERIFIED REPORT Amanda Herrera M.D. at 08/09/2016 5:13 PM CPR/kasi TD: 08/09/2016 05:20 JOB #: [id number] MEDICAL IMAGING REPORT Page 1 of 1 COPY
--- NOTE | ~2016-08-08 | DS ---
Unit #: [id number] #: [id number] Patient: LEILA ANDRE [id number] [address] [address] [id number] I MR#: [id number] NAME: LEILA ANDRE ROOM: 565 Age: 89 Sex: F Admission Date: 08/08/2016 : 1925 Discharge Date: 08/10/2016 Attending Physician: Rose Mary Payan M.D. Primary Care Physician: Deepak Nuñez M.D. DISCHARGE SUMMARY PRINCIPAL DIAGNOSES 1. Acute on chronic anemia, presumed blood loss origin, status post transfusion of 3 units of packed red blood cells. 2. Chemotherapy-induced pancytopenia. 3. Acute kidney injury, prerenal. Discharge creatinine 1.2. 4. Hypokalemia. 5. Aortic stenosis, moderate. 6. Severe mitral regurgitation. 7. Chronic diastolic congestive heart failure with ejection fraction of 55%. 8. 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 9. Hypothyroidism. 10. Moderate protein malnutrition. 11. Mild vitamin B12 deficiency with vitamin B12 level of 383. 12. Deconditioning. [employer] Dr. Gilman, Oncology. PROCEDURES 1. Transfusion of 3 units of packed red blood cells which occurred without complication. 2. Chest x-ray on August 08, 2016 revealed hyperinflation of the lungs. 3. CT of the head without contrast on August 08, 2016 with 1 cm hypodensity abutting the anterior horn of the left lateral ventricle. CLINICAL HISTORY AND HOSPITAL COURSE Ms. Andre is a nice 89-year-old female, who presents to the emergency department with generalized weakness and dizziness. In the emergency department, the patient was found to have a hemoglobin of 5.4 in addition to a white count of 2. She underwent CT scan of the head which did not reveal any abnormal findings. She was subsequently admitted. Patient was transfused 2 units of packed red blood cells and hemoglobin following transfusion was 6.8. She was subsequently transfused another unit and on day of discharge, hemoglobin is now 9.2. She has had no sign or symptoms of GI bleed at this time; however, I will note patient was hospitalized in this facility in May 2016 after presenting at that time with acute anemia. EGD at that time was unremarkable for any acute bleeding. Given her chronic co-morbidities, colonoscopy likely would not be very beneficial. There is still a strong clinical suspicion for GI bleed at home given she intermittently has melanotic stools. For this reason, I am going to discontinue her aspirin therapy. Unit #: [id number] #: [id number] Patient: LEILA ANDRE Patient also had some associated acute kidney injury but this is improved. Potassium was also low and this will be replaced. At this time, patient will be discharged home with her son and will further discuss outpatient evaluation and following of her anemia with Dr. Gilman. DISCHARGE CONDITION Stable. DISCHARGE STATUS Discharge to home. DISCHARGE MEDICATIONS 1. Imbruvica one tablet p.o. t.i.d. 2. Metoprolol tartrate 12.5 mg b.i.d. 3. Colace 100 mg p.o. b.i.d. p.r.n. for constipation. 4. Lasix 40 mg daily. 5. Protonix 40 mg b.i.d. 6. Levothyroxine 150 mcg p.o. daily. DISCHARGE INSTRUCTIONS 1. The patient was instructed to follow a regular diet. 2. She can increase her activity as tolerated. FOLLOWUP The patient will follow up with Dr. Gilman in one week. Dictated by... Rose Mary Payan M.D. DOM/glenn TD: 08/10/2016 11:35 JOB #: [id number] DISCHARGE SUMMARY Page 1 of 1 X Rose Mary Payan MD X DISCHARGE SUMMARY
--- NOTE | ~2016-08-08 | CO ---
Unit #: [id number] #: [id number] Patient: LEILA CROWE [id number] [address] [address] [id number] I MR#: [id number] NAME: LEILA CROWE ROOM: 565 Age: 89 Sex: F Admission Date: 08/08/2016 : 1925 Attending Physician: Rose Mary Payan M.D. Primary Care Physician: Deepak Nuñez M.D. CONSULTATION REPORT CHIEF COMPLAINT CLL on ibrutinib, dizziness. HISTORY OF PRESENT ILLNESS This is an 89-year-old female, who was diagnosed with (1) during February 2011. She received chemotherapy. At present, she is taking ibrutinib. Patient came to hospital with lightheadedness, dizziness, significant declining performance status. CBC showed WBC 2.2, hemoglobin 5.4, MCV 97, and platelets 66,000. She is receiving PRBC transfusion. At present, she is comfortable. REVIEW OF SYSTEMS CONSTITUTIONAL: Declining performance status. No fever, no chills, no sweats, no weight loss. EYES: No visual symptoms. EARS, NOSE AND THROAT: There is no runny nose or sore throat or difficulty hearing. CARDIOVASCULAR: No chest pain. No shortness of breath. No palpitations. No orthopnea. No PND. RESPIRATORY: No cough. No wheezing. No hemoptysis. GASTROINTESTINAL: No nausea, vomiting, diarrhea, constipation, hematochezia or melena. GENITOURINARY: No urinary frequency, hesitancy or urgency. No blood in the urine. MUSCULOSKELETAL: No muscle or joint pain. NEUROLOGIC: No headache. No numbness or tingling. No weakness. No seizure. PSYCHIATRIC: No anxiety, depression or mood disturbance. ENDOCRINE: No excessive urination or thirst. DERMATOLOGIC: No rash or change in the skin. ALLERGIC/IMMUNOLOGIC: No symptoms. HEMATOLOGIC/LYMPHATIC: Denies any symptoms. PAST MEDICAL HISTORY 1. CLL, chemo, now on ibrutinib. 2. Aortic stenosis. 3. Severe mitral regurgitation. 4. CHF. 5. Hypertension. 6. Hypothyroidism. Unit #: [id number] #: [id number] Patient: LEILA CROWE ALLERGIES None. SOCIAL HISTORY Stopped smoking many, many years ago. PAST SURGICAL HISTORY 1. Cholecystectomy. 2. Left knee surgery. FAMILY HISTORY Positive for coronary artery disease. CURRENT MEDICATIONS 1. Lasix. 2. Aspirin. 3. Colace. 4. Protonix. 5. Lopressor. 6. Synthroid. PHYSICAL EXAMINATION VITAL SIGNS: Afebrile. Pulse 72, respiratory rate 20, O2 saturation 99%, blood pressure 130/56. GENERAL: Patient is comfortable. ECOG is 0. The patient is pleasant. HEENT: Moist mucosa. Pupils equally reactive to light. Extraocular muscles intact. Sclerae anicteric. No obvious bleeding from nasal mucosa or oral mucosa. Scalp normal. Hearing normal. NECK: No JVD. No lymphadenopathy. LYMPHATIC/HEMATOLOGIC: There is no palpable adenopathy in the neck, axilla or inguinal area. CARDIOVASCULAR: S1, S2. Regular rate and rhythm. No S3 or S4. RESPIRATORY: Chest symmetrical, normal. Clear to auscultation bilaterally. No wheezes, no rales, no rhonchi. No dullness to percussion. ABDOMEN/GASTROINTESTINAL: Abdomen is soft, nontender, nondistended. No hepatosplenomegaly. EXTREMITIES: There is no clubbing, no cyanosis, no edema. No varicose veins. NEUROLOGICAL: Patient is alert, awake and oriented x3. Cranial nerves II-XII are intact. Sensory grossly intact. Motor is 4/5 in all four extremities. Gait is normal. Station is normal. Language is normal. Memory is normal. DTRs +2 in all four extremities. MUSCULOSKELETAL: No joint swelling. No bony tenderness. No muscle tenderness. SKIN: No petechiae, no rash, no ecchymosis. PSYCHIATRIC: No anxiety. No delusions or hallucinations. There is no agitation. Eye contact is normal. Affect is appropriate. There is no flight of ideas. DIAGNOSTIC STUDIES IMAGING: Patient had CT of the chest, abdomen, and pelvis on June 21, 2016. There is significant splenomegaly, extensive diverticulosis. CT chest during November was normal. ASSESSMENT AND PLAN This is an 89-year-old female with the following active issues: 1. CLL: In the past, she received chemotherapy. She is taking Unit #: [id number] #: [id number] Patient: LEILA CROWE ibrutinib. At present, it is on hold. 2. Leukopenia: It is mild. I will give her Granix. Platelets are above 50,000. She is tolerating aspirin. 3. Anemia: She is receiving packed red blood cell transfusion. Will check iron studies. Dictated by... Chino Mccarty M.D. Tomas TD: 08/09/2016 14:39 JOB #: [id number] CONSULTATION REPORT Page 1 of 1 X Chino Mccarty MD X CONSULTATION REPORT
--- NOTE | ~2016-08-08 | CR72 ---
[facility] A Service of [facility] & [facility] RADIOLOGY TEXT RESULTS PATIENT: LEILA CROWE LOCATION: [facility] [id number] : [birth year] UNIT #: [id number] AGE: [address]: Slava Jose MD SEX: F ORDER DR: [id number] [facility] [address] [place], [place] [address] [id number] I MR#: [id number] Acc #: [id number] NAME: LEILA CROWE : 1925 SEX: F STUDY DATE/TIME: 08/08/2016 18:39 UNIT: [facility] ROOM: [facility] STUDY DESCRIPTION: CR Chest Single View Portable Attending Physician: Slava Jose M.D. Ordering Physician: Adrianna Kerns M.D. Primary Care Physician: Deepak Nuñez M.D. MEDICAL IMAGING REPORT This report is preliminary unless electronic signature is present EXAM Portable chest x-ray, 08/08/2016 HISTORY CHF, fatigue 2 days, altered mental status. Nausea, congestive heart failure. B-cell lymphoma, pill form treatment. FINDINGS AP radiograph of the chest presented. Comparison 07/20/2016. Right side chest port unchanged. Stable cardiac enlargement. Lungs hyperinflated suggesting underlying chronic airway disease. No compelling evidence of pulmonary edema or pneumonia at this time. No clearly acute pulmonary disease seen. No pleural effusion or pneumothorax. No suspicious nodule. Calcified granuloma right upper lung zone. Prior cholecystectomy. Degenerative changes in the spine. No acute appearing bony abnormality. Dictated by... Jesus Ramirez M.D. THIS IS AN ELECTRONICALLY VERIFIED REPORT Jesus Ramirez M.D. at 08/09/2016 8:14 AM RANDALL/kasi TD: 08/09/2016 03:35 JOB #: [id number] MEDICAL IMAGING REPORT Page 1 of 1 COPY
--- NOTE | ~2016-08-08 | EKG ---
PATIENT: LEILA CROWE UNIT #: [id number] Ventricular Rate: 86 BPM Atrial Rate: 86 BPM P-R Interval: 176 ms QRS Duration: 124 ms Q-T Interval: 414 ms QTC Calculation(Bezet): 495 ms P [place]: 55 degrees Calculated R [place]: -14 degrees Calculated T [place]: 99 degrees Diagnosis Line: Sinus rhythm with Premature supraventricular Diagnosis Line: complexes Diagnosis Line: Left ventricular hypertrophy with QRS widening and Diagnosis Line: repolarization abnormality Diagnosis Line: Abnormal ECG Diagnosis Line: No previous ECGs available Diagnosis Line: Confirmed by GONZALES FITZGERALD MD ([id number]) on 08/08/2016 Diagnosis Line: 4:56:43 PM INTERPRETING MD: LIA KUO
[2016-08-08 18:40] LABS: URINE SOURCE CLEAN CATCH
[2016-08-08 18:45] LABS: URINE APPEARANCE CLEAR; URINE BILIRUBIN NEG (NEG); URINE BLOOD NEG (NEG); URINE COLOR YELLOW; URINE GLUCOSE NEG (NEG); URINE KETONE NEG (NEG); URINE LEUKOCYTE ESTERASE TRACE (NEG); URINE NITRATE NEG (NEG); URINE PROTEIN NEG (NEG)
[2016-08-08 18:46] LABS: URBCS1 AUWI 0-2 /[HPF] (0-2); URINE BACTERIA AUWI NEG (NEGATIVE); URINE SQUAMOUS EPITHELIAL CELL OCC /[HPF]
[2016-08-08 18:47] LABS: CULTURE INDICATED? NO
[2016-08-08 19:56] LABS: INR 1.1; PARTIAL THROMBOPLASTIN TIME 35.6 SECONDS (23.5-31.3); PROTHROMBIN TIME (PATIENT) 11.9 SECONDS (9.6-11.5)
[2016-08-08 20:00] LABS: BASOPHIL% 1.1 % (0-2.5); EOSINOPHIL% 1.3 % (0.0-7.0); HEMATOCRIT 16.8 % (35.0-45.0); LYMPHOCYTE# 0.3 X10e3 (1.0-3.5); LYMPHOCYTE% 12.8 % (17.0-45.0); MEAN CELL VOLUME 97.8 FL (83-96); MEAN CORPUSCULAR HEMOGLOBIN 31.6 PG (28-34); MEAN CORPUSCULAR HGB CONC 32.3 g/dL (30-36); MEAN PLATELET VOLUME 9.1 FL (6.5-11.5); MONOCYTE# 0.3 X10e3 (0-1.0); MONOCYTE% 13.4 % (3.0-12.0); NEUTROPHIL# 1.6 X10e3 (1.5-7.1); NEUTROPHIL% 71.4 % (40-75); RED BLOOD COUNT 1.71 X10e (3.90-5.30); RED CELL DISTRIBUTION WIDTH 16.6 % (11.0-15.5); WHITE BLOOD COUNT 2.2 X10e3 (4.0-10.5)
[2016-08-08 20:03] LABS: HEMOGLOBIN 5.4 gm/dL (12.0-16.0)
[2016-08-08 20:07] LABS: ALBUMIN SERUM 3.1 g/dL (3.5-5.0); BILIRUBIN, DIRECT 0.3 mg/dL (0.0-0.2); BILIRUBIN,INDIRECT 1.4 mg/dL (0.0-0.9); BILIRUBIN,TOTAL 1.7 mg/dL (0.2-2.0); CALCIUM SERUM 8.3 mg/dL (8.4-10.2); CREATININE SERUM 1.2 mg/dL (0.6-1.4); POTASSIUM 3.4 mmol/L (3.5-5.1); PROTEIN TOTAL SERUM 4.6 g/dL (6.0-8.3)
[2016-08-08 20:14] LABS: DIFF IND YES; PLATELET COUNT 66 X10e3 (140-420)
[2016-08-08 20:30] LABS: ANISOCYTOSIS SL; PLATELET ESTIMATE DECREASED (NORMAL)
[2016-08-08 20:31] LABS: HYPOCHROMIA SL
[2016-08-09 07:03] LABS: BASOPHIL% 2.3 % (0-2.5); EOSINOPHIL% 2.1 % (0.0-7.0); HEMATOCRIT 20.6 % (35.0-45.0); LYMPHOCYTE# 0.3 X10e3 (1.0-3.5); LYMPHOCYTE% 15.3 % (17.0-45.0); MEAN CORPUSCULAR HEMOGLOBIN 30.6 PG (28-34); MEAN CORPUSCULAR HGB CONC 32.8 g/dL (30-36); MEAN PLATELET VOLUME 9.2 FL (6.5-11.5); MONOCYTE# 0.3 X10e3 (0-1.0); MONOCYTE% 13.9 % (3.0-12.0); NEUTROPHIL# 1.4 X10e3 (1.5-7.1); NEUTROPHIL% 66.4 % (40-75); PLATELET COUNT 68 X10e3 (140-420); RED BLOOD COUNT 2.21 X10e (3.90-5.30); RED CELL DISTRIBUTION WIDTH 17.5 % (11.0-15.5)
[2016-08-09 07:08] LABS: BUN/CREATININE RATIO 20.76; CALCIUM SERUM 8.3 mg/dL (8.4-10.2); CREATININE SERUM 1.3 mg/dL (0.6-1.4); GLOM FILT RATE Estimated 36.3 mL/min (>60); POTASSIUM 3.8 mmol/L (3.5-5.1)
[2016-08-09 07:15] LABS: HEMOGLOBIN 6.8 gm/dL (12.0-16.0); MEAN CELL VOLUME 93.4 FL (83-96)
[2016-08-09 07:16] LABS: DIFF IND NO
[2016-08-10 06:23] LABS: HEMATOCRIT 27.3 % (35.0-45.0); HEMOGLOBIN 9.2 gm/dL (12.0-16.0); MEAN CELL VOLUME 91.6 FL (83-96); MEAN CORPUSCULAR HEMOGLOBIN 30.8 PG (28-34); MEAN CORPUSCULAR HGB CONC 33.6 g/dL (30-36); RED BLOOD COUNT 2.98 X10e (3.90-5.30); RED CELL DISTRIBUTION WIDTH 16.9 % (11.0-15.5)
[2016-08-10 07:01] LABS: FERRITIN 88 ng/mL (11-307)
[2016-08-10 07:15] LABS: ALBUMIN SERUM 2.8 g/dL (3.5-5.0); BILIRUBIN,TOTAL 3.4 mg/dL (0.2-2.0); BUN/CREATININE RATIO 20.83; CALCIUM SERUM 8.4 mg/dL (8.4-10.2); CREATININE SERUM 1.2 mg/dL (0.6-1.4); POTASSIUM 3.4 mmol/L (3.5-5.1); PROTEIN TOTAL SERUM 4.2 g/dL (6.0-8.3)
[2016-08-26] MEDS ORDERED: FUROSEMIDE40 MG PO (01:19)
[2016-08-26] MEDS ORDERED: PROTONIX PO (12:42)
[2016-08-26] MEDS ORDERED: METOPROLOL TAR25 MG PO (18:02)
[2016-08-26] MEDS ORDERED: SYNTHROID PO (18:02)
[2016-08-26] MEDS ORDERED: IMBRUVICA140 MG PO (18:03)
[2016-08-26] MEDS ORDERED: DOK100 MG PO (20:45)
== END 2016-08-10 12:29 | disposition home or self-care (01) | DRG 840 ==
LOC: CED 14:36 → CEDOF 20:50 → CED 20:50 → C5C 20:50 → CED 20:58 → CEDOF 20:58 → C5C 23:23 → CEDOF 23:23 → C5C 23:23 → CEDOF 08-09 13:55 → C5C 08-10 12:29
PROVIDERS: Internal Medicine Hematology; Student in an Organized Health Care Education/Training Program
DX: C85.10 Unspecified B-cell lymphoma, unspecified site (principal); D61.810 Antineoplastic chemotherapy induced pancytopenia; N17.9 Acute kidney failure, unspecified; E44.0 Moderate protein-calorie malnutrition; I50.32 Chronic diastolic (congestive) heart failure; D64.9 Anemia, unspecified; I11.0 Hypertensive heart disease with heart failure; E87.6 Hypokalemia; I08.0 Rheumatic disorders of both mitral and aortic valves; K57.90 Diverticulosis of intestine, part unspecified, without perforation or abscess without bleeding
CPT/HCPCS: 36415; 70450; 71010; 80048; 80053; 80076; 81003; 82607; 82728; 83540; 83550; 83605; 83880; 84443; 84484; 85025; 85027; 85610; 85730; 86850; 86900; 86901; 86922; 93005; 96361; 96374; 97116; 97162; 97166; 97535; 99285; G8978-GP; G8979-GP; G8987-GO; G8988-GO; G8989-GO; J1447; J1642; J1940; J2405; P9016

== ENCOUNTER → 2016-08-25 | Outpatient (CLI) | payer MEDICARE, BC ==
[~2016-08-25] MED LIST changes: +DOK100 MG PO; +FUROSEMIDE40 MG PO; +PROTONIX PO
== END | disposition home or self-care (01) ==
LOC: CLAB 10:40
DX: D64.9 Anemia, unspecified (principal)
CPT/HCPCS: 86850; 86900; 86901; 86922

== ENCOUNTER → 2016-08-26 | Outpatient (CLI) | payer MEDICARE, BC | END | disposition home or self-care (01) | LOC: CSSDAY 07:59 | DX: D64.9 Anemia, unspecified (principal) | CPT/HCPCS: 36430; J1642; P9016 ==